=== PATIENT | female | born 1980 | race American Indian/Alaskan Native ===

== ENCOUNTER 2018-11-22 13:00 | Emergency (ER) | payer MEDICAID, OTHER ==
[2018-11-22 13:47] VITALS: BP 128/82
[2018-11-22] MEDS ORDERED: Penicillin G Benzathine/Procaine 900-300 1.2 Millunits/2 ML Syringe IM ONE ×2 (14:58→15:03)
--- NOTE | 2018-11-22 15:06 | EDM.PDOC ---
ED HPI GENERAL MEDICAL PROBLEM - General Chief Complaint: ENT Problem Stated Complaint: SORE THROAT Time Seen by Provider: 11/22/18 14:00 Source of Information: Reports: Patient History Limitations: Reports: No Limitations - History of Present Illness INITIAL COMMENTS - FREE TEXT/NARRATIVE: 38-year-old female with a sore throat for 2 days, sore neck and generalized malaise with low-grade fever. No cough, her son is being treated for sore throat. Last time she had this she got a penicillin shot and was "better in a day". Onset: Sudden Duration: Day(s): - Related Data Allergies Allergy/AdvReac Type Severity Reaction Status Date / Time codeine Allergy Intermediate Abdominal Verified 11/22/18 13:51 Pain Home Meds: Home Meds NK [No Known Home Meds] 02/11/15 [History] Past Medical History INTERNAL SALES History: Reports: Social & Family History - Tobacco Use Smoking Status *Q: Current Every Day Smoker Years of Tobacco use: 15 Packs/Tins Daily: 0.5 - Caffeine Use Caffeine Use: Reports: Soda - Recreational Drug Use Recreational Drug Use: Yes Recreational Drug Type: Reports: Marijuana/Hashish ED ROS ENT - Review of Systems Review Of Systems: See Below (2 days) Constitutional: Reports: Fever HEENT: Reports: Throat Pain Respiratory: Denies: Shortness of Breath, Cough Cardiovascular: Denies: Chest Pain GI/Abdominal: Reports: Nausea. Denies: Abdominal Pain, Vomiting Neurological: Reports: Headache ED EXAM, ENT - Physical Exam Exam: See Below Exam Limited By: No Limitations General Appearance: Alert, No Apparent Distress (Uncomfortable but not distressed) Ears: Normal TMs Mouth/Throat: Other (Pharyngeal erythema, somewhat worse on the left) Respiratory/Chest: No Respiratory Distress, Lungs Clear Course - Vital Signs Last Recorded V/S: Last Vital Signs Temp 98.0 F 11/22/18 13:51 Pulse 80 11/22/18 13:51 Resp 17 11/22/18 13:51 BP 128/82 11/22/18 13:51 Pulse Ox 100 11/22/18 13:51 - Orders/Labs/Meds Meds: Medications Discontinued Medications Generic Name Dose Route Start Last Admin Trade Name Freq PRN Reason Stop Dose Admin Penicillin G Procaine/Benzathine Confirm 11/22/18 14:58 11/22/18 15:11 Bicillin C-R 900/300 Administered 11/22/18 14:59 Not Given Dose 1.2 millunits IM .STK-MED ONE Penicillin G Procaine/Benzathine 1.2 millunits 11/22/18 15:03 11/22/18 15:11 Bicillin C-R 900/300 IM 11/22/18 15:04 1.2 millunits ONETIME ONE Administration - Re-Assessments/Exams Free Text/Narrative Re-Assessment/Exam: 11/22/18 15:05 Rapid strep was obtained which was positive for strep pharyngitis. At her request she was given Bicillin 900/300 IM 1. She should rest, get fluids, and recheck in 5-6 days if not improving satisfactorily. Ibuprofen or naproxen will help. Departure - Departure Time of Disposition: 15:29 Disposition: Home, Self-Care 01 Condition: Good Clinical Impression: Strep throat - Discharge Information Instructions: Strep Throat Referrals: PCP,None [Primary Care Provider] - Forms: ED Department Discharge Care Plan Goals: Rest, fluids, ibuprofen would help with discomfort and advance diet as tolerated. Recheck in 4-5 days if not improving satisfactorily, or return sooner if worsening despite treatment.
== END 2018-11-22 15:29 | disposition home or self-care (01) ==
LOC: JP.ED 13:00
DX: J02.0 Streptococcal pharyngitis (principal); F17.210 Nicotine dependence, cigarettes, uncomplicated; Z88.5 Allergy status to narcotic agent
CPT/HCPCS: 87430; 96372; 99283; J0558